=== PATIENT | female | born 1990 | race Caucasian/White ===

== ENCOUNTER 2016-10-26 10:24 | Emergency (ER) | payer OTHER ==
[~2016-10-26] VITALS: Ht 157.5 cm; Wt 60.0 kg
[2016-10-26 10:34] VITALS: Ht 157.5 cm; Wt 60.0 kg
[2016-10-26] MEDS ORDERED: ONDANSETRON (ODT) 4 MG TAB ODT STA (12:00)
[2016-10-26] MEDS ORDERED: LIDOCAINE/MYLANTA 40 ML BTL PO ONE (12:00)
--- NOTE | 2016-10-26 12:00 | ERD ---
ER Documentation Chief Complaint Date/Time DATE: 10/26/16 TIME: 11:58 Chief Complaint Complains of nausea and vomiting x 2 days HPI 26-year-old female who presents to emergency department for right upper abdominal pain, nausea, vomiting for 2 days. Stated that she vomited couple of times for the past 24 hours. Vomited whitish vomitus. Stated that abdominal pain is worse after eating greasy foods. Recently finished his antibiotics for his UTI.Denies headache, dizziness, blurred vision, neck pain, shoulder pain, chest pain, back pain, diarrhea, constipation, , possibility of being , trauma, recent exposure to any illness, recent travel, fever, chills. No known drug allergies. No past medical history. No surgical history. Works as a receptionist secretary. Occasional drinks alcoholic beverages, denies use of illegal drugs. ROS All systems reviewed and are negative except as per history of present illness. Allergies Allergies: Coded Allergies: No Known Allergy (Unverified , 05/06/14) PMhx/Soc History of Surgery: No Anesthesia Reaction: No Hx Neurological Disorder: No Hx Respiratory Disorders: No Hx Cardiac Disorders: No Hx Psychiatric Problems: No Hx Miscellaneous Medical Probl: No Hx Alcohol Use: No Hx Substance Use: No Hx Tobacco Use: No Smoking Status: Never smoker Physical Exam Vitals Vital Signs Date Time Temp Pulse Resp B/P Pulse Ox O2 Delivery O2 Flow Rate FiO2 10/26/16 10:34 99.1 84 20 111/77 97 Physical Exam Const: [] Head: Atraumatic Eyes: Normal Conjunctiva ENT: Normal External Ears, Nose and Mouth. Neck: Full range of motion..~ No meningismus. Resp: Clear to auscultation bilaterally Cardio: Regular rate and rhythm, no murmurs Abd: Soft, non tender, non distended. Normal bowel sound. Right upper abdominal tenderness on palpation during inspiration. Able to jump 10 times without developing right-sided abdominal pain. Skin: No petechiae or rashes Back: No midline or flank tenderness Ext: No cyanosis, or edema Neur: Awake and alert Psych: Normal Mood and Affect Result Diagram: 10/26/16 1218 10/26/16 1218 Results 24 hrs Laboratory Tests Test 10/26/16 12:18 White Blood Count 7.510^3/ul Red Blood Count 4.5110^6/ul Hemoglobin 13.1g/dl Hematocrit 40.3% Mean Corpuscular Volume 89.4fl Mean Corpuscular Hemoglobin 29.0pg Mean Corpuscular Hemoglobin Concent 32.5g/dl Red Cell Distribution Width 12.2% Platelet Count 72418^3/UL Mean Platelet Volume 10.4fl Neutrophils % 67.8% Lymphocytes % 22.8% Monocytes % 8.5% Eosinophils % 0.1% Basophils % 0.5% Nucleated Red Blood Cells % 0.0/100WBC Neutrophils # (Manual) 5.110^3/ul Lymphocytes # 1.710^3/ul Monocytes # 0.610^3/ul Eosinophils # 0.010^3/ul Basophils # 0.010^3/ul Nucleated Red Blood Cells # 0.010^3/ul Urine Color YELLOW Urine Clarity SLIGHTLY CLOUDY Urine pH 5.0 Urine Specific [place] 1.025 Urine Ketones NEGATIVEmg/dL Urine Nitrite NEGATIVEmg/dL Urine Bilirubin NEGATIVEmg/dL Urine Urobilinogen NEGATIVEmg/dL Urine Leukocyte Esterase NEGATIVELeu/ul Urine Microscopic RBC 2/HPF Urine Microscopic WBC 1/HPF Urine Squamous Epithelial Cells FEW/HPF Urine Bacteria FEW/HPF Urine Mucus FEW/HPF Urine Hemoglobin 2+mg/dL Urine Glucose NEGATIVEmg/dL Urine Total Protein NEGATIVEmg/dl Sodium Level 143mmol/L Potassium Level 3.7mmol/L Chloride Level 99mmol/L Carbon Dioxide Level 28mmol/L Anion Gap 20 Blood Urea Nitrogen 10mg/dl Creatinine 0.69mg/dl Glucose Level 100mg/dl Calcium Level 9.5mg/dl Total Bilirubin 0.3mg/dl Direct Bilirubin 0.00mg/dl Indirect Bilirubin 0.3mg/dl Aspartate Amino Transf (AST/SGOT) 20IU/L Alanine Aminotransferase (ALT/SGPT) 22IU/L Alkaline Phosphatase 67IU/L Total Protein 8.9g/dl Albumin 4.7g/dl Globulin 4.20g/dl Albumin/Globulin Ratio 1.11 Amylase Level 93U/L Lipase 37U/L Current Medications Medications (Trade) Dose Ordered Sig/Kat Route PRN Reason Start Time Stop Time Status Last Admin Dose Admin Ondansetron HCl (Zofran Odt) 4 mg ONCE STAT ODT 10/26/16 12:00 10/26/16 12:03 DC 10/26/16 12:23 Miscellaneous Medication (Gi Cocktail (2)) 40 ml ONCE ONCE PO 10/26/16 12:00 10/26/16 12:03 DC 10/26/16 12:23 Procedures/MDM 26-year-old female who presents to emergency department for right upper abdominal pain, nausea, vomiting for 2 days. Stated that she vomited couple of times for the past 24 hours. Vomited whitish vomitus. Stated that abdominal pain is worse after eating greasy foods. Recently finished his antibiotics for his UTI.Denies headache, dizziness, blurred vision, neck pain, shoulder pain, chest pain, back pain, diarrhea, constipation, , possibility of being , trauma, recent exposure to any illness, recent travel, fever, chills. No known drug allergies. No past medical history. No surgical history. Works as a receptionist secretary. Occasional drinks alcoholic beverages, denies use of illegal drugs. Physical exam: Right upper abdominal tenderness on palpation during inspiration. Able to jump 10 times without developing right-sided abdominal pain. Differential diagnosis: Cholecystitis versus pancreatitis versus diverticulitis versus appendicitis versus nephrolithiasis versus pyelonephritis versus urinary tract infection versus gastroesophageal reflux disease versus gastritis Treatment: Gi Cocktail, Zofran. Po Challenge. Re-evaluation: Denies headache, dizziness, blurry vision, neck pain, shoulder pain, chest pain, back pain, abdominal pain, nausea, vomiting. No episode of emesis in the emergency department. Alert and oriented 4. Speaks full and clear sentences. Respirations even and unlabored. Lung sounds clear to auscultation. Active bowel sounds. There is no right upper/right lower/ epigastric/left upper/left lower abdominal tenderness and light and deep palpation. Negative on [place] sign. Negative [place] sign. Able to jump 5 times without developing right-sided abdominal pain. No peritoneal signs. Ambulatory with steady gait. No neurovascular deficits. No neurological deficits. Urinalysis: Negative. POC urine : Negative. Abdominal ultrasound: Unremarkable right upper quadrant abdominal ultrasound. Blood works: Reviewed. Medical decision making: Discharged with final diagnosis of abdominal pain, gastritis. Prescribed with Pepcid. Also prescribed with Zofran. All questions and concerns were answered. Follow-up with primary care physician in the next 24-48 hours. Come back here in the emergency department for any new symptoms or any worsening symptoms. Patient and family member verbalized understanding and agreed with the plan of care. Hemodynamically stable on discharge. Departure Diagnosis: Primary Impression: Nausea and vomiting Additional Impression: Gastritis Condition: Stable Additional Instructions: Follow-up with primary care physician in the next 24-48 hours. Come back here in the emergency department for any new symptoms or any worsening symptoms. Patient and family member verbalized understanding and agreed with the plan of care. ROXI IBARRA Oct 26, 2016 12:00
[2016-10-26 13:03] LABS: BASOPHILS % 0.5 % (0.0-2.0); EOSINOPHILS % 0.1 % (0.0-7.0); HEMATOCRIT 40.3 % (37.0-47.0); HEMOGLOBIN 13.1 g/dl (12.0-16.0); LYMPHOCYTES # 1.7 10^3/ul (0.8-2.9); LYMPHOCYTES % 22.8 % (15.0-51.0); MEAN CORPUSCULAR HGB CONC 32.5 g/dl (32.0-37.0); MEAN CORPUSCULAR VOLUME 89.4 fl (82.0-101.0); MEAN PLATELET VOLUME 10.4 fl (7.4-10.4); MONOCYTE # 0.6 10^3/ul (0.3-0.9); MONOCYTES % 8.5 % (0.0-11.0); NEUTROPHILS % 67.8 % (39.0-77.0); PLATELET COUNT 230 10^3/UL (140-415); RED BLOOD COUNT 4.51 10^6/ul (4.20-5.40); RED CELL DISTRIBUTION WIDTH 12.2 % (11.5-14.5); WHITE BLOOD COUNT 7.5 10^3/ul (4.8-10.8)
[2016-10-26 13:16] LABS: ALBUMIN 4.7 g/dl (3.3-4.9); ALBUMIN/GLOBULIN RATIO 1.11; BILIRUBIN,INDIRECT 0.3 mg/dl (0-1.1); BILIRUBIN,TOTAL 0.3 mg/dl (0.2-1.3); CALCIUM 9.5 mg/dl (8.4-10.2); CREATININE 0.69 mg/dl (0.44-1.00); POTASSIUM 3.7 mmol/L (3.5-5.1); TOTAL PROTEIN 8.9 g/dl (6.1-8.1)
--- NOTE | 2016-10-26 13:27 | RADRPT ---
PROCEDURE: US Abdomen. CLINICAL INDICATION: abdominal pain TECHNIQUE: Multiple real-time images were acquired of the patient's right upper quadrant abdomen a nd retroperitoneum utilizing a high resolution transducer. COMPARISON: None FINDINGS: The liver demonstrates normal echogenicity. The liver is normal in size and no focal solid lesions are seen. The liver measures 13.4 cm in length. The portal vein is patent with normal direction of f low. No intrahepatic biliary dilatation is seen. No gallstones are identified within the gallbladder. There is no pericholecystic fluid or gallbladd er wall thickening. The common bile duct measures 2.3 mm in maximal dimension. The visualized portions of the pancreas are unremarkable. The tail of the pancreas is not seen. No free fluid is identified. The right kidney is normal in size, and demonstrate normal echogenicity and cortical thickness. The right kidney measures 9.4 cm in long dimension. There is no evidence of hydronephrosis. There are no kidney stones. RPTAT: AA IMPRESSION: Unremarkable right upper quadrant abdominal ultrasound. .Jose Peralta MD, MD Date Time Electronically viewed and signed by .Jose Peralta MD, MD on 10/26/2016 13:26 .S/
[2016-10-26 13:42] LABS: ADD UMIC YES; UR ASCORBIC ACID NEGATIVE (NEGATIVE); UR BACTERIA FEW /HPF (NONE SEEN); UR BILIRUBIN (Dip) NEGATIVE (NEGATIVE); UR BLOOD (Dip) 2+ mg/dL (NEGATIVE); UR CLARITY SLIGHTLY CLOUDY (CLEAR); UR COLOR YELLOW (YELLOW); UR GLUCOSE (Dip) NEGATIVE (NEGATIVE); UR KETONES (Dip) NEGATIVE (NEGATIVE); UR LEUKOCYTE ESTERASE (Dip) NEGATIVE Leu/ul (NEGATIVE); UR MUCUS FEW /HPF (NONE SEEN); UR NITRITE (Dip) NEGATIVE (NEGATIVE); UR RBC 2 /HPF (0-5); UR SPECIFIC GRAVITY (Dip) 1.025 (1.003-1.030); UR SQUAMOUS EPITHELIAL CELL FEW /HPF (FEW); UR TOTAL PROTEIN (Dip) NEGATIVE (NEGATIVE); UR UROBILINOGEN (Dip) NEGATIVE (NEGATIVE)
== END 2016-10-26 14:08 | disposition home or self-care (01) ==
LOC: FTE 10:24
DX: R11.2 Nausea with vomiting, unspecified (principal); K29.70 Gastritis, unspecified, without bleeding
CPT/HCPCS: 76705; 80053; 81001; 82150; 83690; 85025; 87086; Z7502; Z7610